=== PATIENT | female | born 1990 | race Two or more races ===

== ENCOUNTER 2021-10-13 02:16 | Inpatient (IN) ==
[2021-10-13] MEDS ORDERED: LACTATED RINGER'S 1,000 ML IV PRN (02:23)
[2021-10-13] MEDS ORDERED: OXYTOCIN 30 UNITS/500 ML BAG IV PRN ×2 (02:23→03:25)
[2021-10-13] MEDS ORDERED: OXYTOCIN 30 UNITS/500ML NSS ONE (02:25)
--- NOTE | 2021-10-13 02:25 | History & Physical Report ---
Date of Service October 13, 2021 Assessment & Plan (1) Supervision of normal intrauterine in multigravida: Plan: Admit to L&D. Labs, EFM/toco. Would like epidural - will get if there is time before delivery. History of Present Illness Chief Complaint: labor Primary Care Provider: MAGDIEL PCP 31yo @ 39 2/, presents with regular ctx. Some small amount of bloody discharge. No leaking fluid. + movement. complicated by GDMA2. Allergies Allergy/AdvReac Type Severity Reaction Status Date / Time gelatin Allergy church Verified 10/10/21 11:00 restristion Home Medications Medication Instructions Recorded Confirmed Type blood-glucose meter (OneTouch #1 ea 05/09/21 10/10/21 Rx Verio Flex Meter) prenat.vits,marline,[id number] 1 tab PO DAILY #30 tabs 06/05/21 10/10/21 Rx acetone (urine) test (Ketone Urine #50 ea 07/28/21 10/10/21 Rx Test strips) blood sugar diagnostic (OneTouch #150 ea 07/28/21 10/10/21 Rx Verio test strips) insulin lispro 100 unit/mL 18 unit (0.18 mL) subcut DAILY #15 07/28/21 10/10/21 Rx subcutaneous pen (Humalog KwikPen mL (U-100) Insulin) lancets 33 gauge (OneTouch Delica #150 ea 07/28/21 10/10/21 Rx Plus Lancet) pen needle, diabetic 32 gauge x #120 ea 07/28/21 10/10/21 Rx 5/32" (BD Ultra-Fine [place] Pen Needle) insulin NPH isoph U-100 human 100 15 unit (0.15 mL) subcut QPM #15 mL 08/22/21 10/10/21 Rx unit/mL (3 mL) subcutaneous pen (Novolin N Flexpen) Patient History Medical History No pertinent past medical history Family History (Updated 04/18/21 @ 15:11 by Nani Ross) Mother Diabetes Social History Smoking Status: Never smoker Hx Alcohol Use: No Hx Substance Use: No marital status: marital status details: Desean (37) [phone] Current Living Situation: Spouse Current Living Situation Comment: lives with spouse and child, no pets. current occupational status: unemployed Feels Safe at Home: Yes Review of Systems All systems reviewed & are unremarkable except as noted in HPI & below Physical Exam Physical Exam: SVE bulging membranes per RN Constitutional: WD/WN, vitals as above Respiratory: normal respiratory effort, lungs clear to auscultation no respiratory distress Cardiovascular: Rate/Rhythm: regular rate and regular rhythm Gastrointestinal (Abdomen): Inspection/Auscultation: abdomen normal to inspection Percussion/Palpation: abdomen soft; abdomen nontender Gravid. No s/s chorio or abruption. Skin: no rashes, warm and dry Psychiatric: A+Ox3, euthymic affect Coding Level of Care Code None Diagnoses Supervision of normal intrauterine in multigravida Z34.80
[2021-10-13] MEDS ORDERED: OXYTOCIN 10 UNITS/ML VIAL ONE (02:54)
[2021-10-13] MEDS ORDERED: LIDOCAINE 1% LOCAL 20 ML VIAL ONE (02:56)
[2021-10-13] MEDS ORDERED: ERYTHROMYCIN OP OINT 1 GM PKT ONE (02:57)
--- NOTE | 2021-10-13 03:21 | Delivery Summary ---
Vaginal Delivery Summary Date of Service October 13, 2021 Vaginal Delivery Summary [facility] Vaginal Delivery Summary: Pre-delivery diagnoses: 31yo @ 39 2/7, spontaneous labor, GDMA2 Post-delivery diagnoses: same Procedure: spontaneous vaginal delivery Surgeon: Za Moore DO Complications: none Findings: Viable male . Apgars: 8/9. Weight pending, please see nursery records. Estimated blood loss: 400ml Description of delivery: The patient arrived in active labor with bulging membranes and extremely painful. She felt urge to push, therefore AROM was performed for clear fluid. She had a small anterior cervical lip that resolved with 2 pushes. This was without anesthesia. She spontaneously vaginally delivered a viable from the cephalic presentation. The head delivered in GABRIEL position. Nuchal cord x 2, not reduced - delivered through. The anterior shoulder delivered, followed spontaneously by the anterior arm, posterior shoulder, followed by the body. The baby was placed on mother's abdomen and a spontaneous cry was heard. Delayed cord clamping was employed, and the cord was doubly clamped and cut. Cord blood was obtained. The placenta was delivered spontaneously intact with a 3-vessel cord. The uterus and vagina were swept of clots and debris. IV pitocin was attempted, however IV not working - therefore 10u IM pitocin was given. The uterine fundus became firm, however the lower uterine segment was somewhat atonic and clots were expressed. 1 dose methergine was given and the bladder was drained with a red rubber catheter. The cervix, vagina, and perineum were inspected and a small hemostatic 1st degree laceration was noted - I offered patient to either let it heal on its own or repair, she elected to let it heal naturally. Repeat fundal exam and sweep of vagina/uterus revealed firm uterus and excellent hemostasis. The mother and baby are recovering in stable and good condition in the room. Sponge and instrument counts were correct x 2. Za Moore DO [facility] Vaginal Delivery Charge Vaginal Delivery Codes: 15951 global code for the antepartum, delivery, and post- Delivery Type Details: [facility]
[2021-10-13] MEDS ORDERED: oxyCODONE/ACETAMINOPHEN 5mg/325mg TAB PO PRN (03:25)
[2021-10-13] MEDS ORDERED: bisacodyL 10 MG SUPP PR PRN (03:25)
[2021-10-13] MEDS ORDERED: DIPHTHERIA/TETANUS/PERTUSSIS 0.5 ML SYR/VIAL IM ONE (03:25)
[2021-10-13] MEDS ORDERED: HYDROCORTISONE ACETATE 25 MG SUPP PR PRN (03:25)
[2021-10-13] MEDS ORDERED: METHYLERGONOVINE MALEATE 0.2 MG/ML AMP IM ONE (03:25)
[2021-10-13] MEDS: IBUPROFEN 600 MG TAB PO PRN ×4 (03:37→23:29)
[2021-10-13] MEDS: ACETAMINOPHEN 325 MG TAB PO PRN ×2 (03:38→14:55)
[2021-10-13] MEDS: BENZOCAINE 20% AER SPR 82.5 GM CAN EXT PRN ×2 (03:47→08:00)
[2021-10-13 04:06] LABS: Hematocrit (blood only) 35.7 % (34.1-44.9); Hemoglobin 11.9 g/dl (12.0-16.0); Mean Corpuscular Hemoglobin 28.3 pg (25.0-34.0); Mean Corpuscular Hgb Conc 33.3 g/dL (32.0-36.0); Mean Platelet Volume 10.2 fL (9.4-12.3); Platelet Count 219 K/uL (130-400); RDW Standard Deviation 42.9 fL (36.4-46.3)
[2021-10-13] MEDS: PRENATAL VITAMIN 1 TAB PO SCH (07:41)
[2021-10-13] MEDS: DOCUSATE SODIUM SYRUP 100 MG/10 ML UDC PO SCH ×2 (07:41→19:30)
[2021-10-13] MEDS ORDERED: DOCUSATE SODIUM 100 MG CAP PO SCH (08:00)
[2021-10-13 12:39] LABS: Hematocrit (blood only) 30.2 % (34.1-44.9); Hemoglobin 10.2 g/dl (12.0-16.0); Mean Corpuscular Hemoglobin 27.9 pg (25.0-34.0); Mean Corpuscular Hgb Conc 33.8 g/dL (32.0-36.0); Mean Corpuscular Volume 82.5 fL (80.0-100.0); Mean Platelet Volume 10.6 fL (9.4-12.3); Platelet Count 219 K/uL (130-400); RDW Coefficient of Variation 14.1 % (11.5-14.5); RDW Standard Deviation 41.6 fL (36.4-46.3); Red Blood Count 3.66 M/uL (3.93-5.22); White Blood Count 12.05 K/ul (4.8-10.8)
--- NOTE | 2021-10-14 05:50 | Obstetrical Progress Note ---
Date of Service <Farheen Palacio DO - Last Filed: 10/14/21 07:32> October 14, 2021 Assessment & Plan <Farheen Palacio DO - Last Filed: 10/14/21 07:32> (1) Insulin controlled gestational diabetes mellitus (GDM) during : (2) Supervision of normal intrauterine in multigravida: Plan s/p Day 1 -Vital signs reviewed and WNL (Tmax at 37.1) -Hemoglobin reviewed, 9.2 (today) -Blood type: B+, GBS-, Rubella immune -Patient is doing well clinically -Encourage ambulation, monitor and control pain with motrin PRN, resume regular diet, monitor lochia -Encourage breast feeding <Liz Desai MD - Last Filed: 10/14/21 08:54> (1) Insulin controlled gestational diabetes mellitus (GDM) during : (2) Supervision of normal intrauterine in multigravida: Subjective <Farheen Palacio DO - Last Filed: 10/14/21 07:32> Janette is a 31 y/o female who is PPD #1 following vaginal delivery at 39 2/7 weeks. Her was complicated by GDMA2. Patient was seen and examined at bedside. She reports feeling well overall this morning. No abdominal cramping but notes some lower back discomfort with 3/10 pain well managed on analgesics. Has had some burning with urination since delivery but states that it is improving. Tolerating meals overnight and able to ambulate some. Has been passing gas and no bowel movements yet. Has some persistent lochia with some improvement this morning. Currently breast feeding. Constitutional: no fever, no chills or no sweats Respiratory: no cough, no dyspnea or no wheezing Cardiovascular: no chest pain, no palpitations or no calf pain Breast: no breast pain Genitourinary (female): no dysuria Neurologic: no headache(s) Physical Exam <Farheen Palacio DO - Last Filed: 10/14/21 07:32> Constitutional WD/WN, vitals as above no acute distress Respiratory no respiratory distress Auscultation: lungs clear to auscultation bilaterally; no rales, no rhonchi and no wheezes Cardiovascular RRR, no murmur, no edema Extremities: no calf tenderness and no edema Negative Erich's sign bilaterally. Gastrointestinal (Abdomen) Inspection/Auscultation: normal bowel sounds Genitourinary Uterine fundus firm, palpable below the umbilicus. Results & Data ([facility]) <Farheen Palacio DO - Last Filed: 10/14/21 07:32> Vital Signs (Past 12 Hours) Vital Signs Temp Pulse Resp BP Pulse Ox O2 Del Method 10/13/21 23:05 36.6 C 98 H 16 100/66 99 Room Air 10/13/21 19:25 37.1 C 97 H 16 109/69 98 Room Air <Liz Desai MD - Last Filed: 10/14/21 08:54> Co-Signing Physician Notes Resident Physician Supervision Note: I interviewed and examined the patient. Discussed with Dr. Palacio and agree with findings and plan as documented in the note. Any exceptions or clarifications are listed here: PP1 s/p , doing well. May want to d/c home today but she will talk to , ok to do so if desires Documented By: Liz Desai MD Resident Activity Tracking <Farheen Palacio DO - Last Filed: 10/14/21 07:32> Resident Involvement: Resident Care Provided Care Provided: OB Delivery
[2021-10-14 06:26] LABS: Hematocrit (blood only) 27.6 % (34.1-44.9); Hemoglobin 9.2 g/dl (12.0-16.0)
[2021-10-14] MEDS: DOCUSATE SODIUM SYRUP 100 MG/10 ML UDC PO SCH ×2 (08:54→21:02)
[2021-10-14] MEDS: IBUPROFEN 600 MG TAB PO PRN ×3 (08:54→21:02)
[2021-10-14] MEDS: PRENATAL VITAMIN 1 TAB PO SCH (08:54)
[2021-10-14] MEDS: FERROUS SULFATE 325 MG TAB PO SCH (13:00)
[2021-10-14] MEDS: ACETAMINOPHEN 325 MG TAB PO PRN (16:07)
[2021-10-14] MEDS ORDERED: bisacodyL 5 MG TABEC PO SCH (20:00)
[2021-10-15] MEDS: ACETAMINOPHEN 325 MG TAB PO PRN (00:29)
--- NOTE | 2021-10-15 07:41 | Obstetrical Progress Note ---
Date of Service <Farheen Palacio DO - Last Filed: 10/15/21 07:41> October 15, 2021 Assessment & Plan <Farheen Palacio DO - Last Filed: 10/15/21 07:41> (1) Insulin controlled gestational diabetes mellitus (GDM) during : (2) Supervision of normal intrauterine in multigravida: Plan s/p Day 2 -Vital signs reviewed and WNL (Tmax at 37.1) -Hemoglobin reviewed, 9.2 (yesterday) -Blood type: B+, GBS-, Rubella immune -Patient is doing well clinically -Encourage ambulation, monitor and control pain with motrin PRN, resume regular diet, monitor lochia -Encourage breast feeding -discussed discharge instructions with patient <Carline Ponce MD - Last Filed: 10/15/21 07:43> (1) Insulin controlled gestational diabetes mellitus (GDM) during : (2) Supervision of normal intrauterine in multigravida: Subjective <DO Martin Gama Last Filed: 10/15/21 07:41> Janette is a 31 y/o female who is PPD #2 following vaginal delivery at 39 2/7 weeks. Her was complicated by GDMA2. Patient was seen and examined at bedside. She reports feeling well overall this morning. No abdominal cramping today, pain well managed on analgesics. Has had some burning with urination since delivery but states that it is improving. Tolerating meals overnight and able to ambulate some. Has been passing gas and no bowel movements yet. Has some persistent lochia with some improvement this morning. Currently breast feeding. Constitutional: no fever, no chills or no sweats Respiratory: no cough, no dyspnea or no wheezing Cardiovascular: no chest pain, no palpitations or no calf pain Breast: no breast pain Genitourinary (female): no dysuria Neurologic: no headache(s) Physical Exam <Farheen Palacio DO - Last Filed: 10/15/21 07:41> Constitutional WD/WN, vitals as above no acute distress Respiratory no respiratory distress Auscultation: lungs clear to auscultation bilaterally; no rales, no rhonchi and no wheezes Cardiovascular RRR, no murmur, no edema Extremities: no calf tenderness and no edema Gastrointestinal (Abdomen) Inspection/Auscultation: normal bowel sounds Genitourinary Uterine fundus firm, palpable below umbilicus Results & Data ([facility]) <Farheen Palacio DO - Last Filed: 10/15/21 07:41> Vital Signs (Past 12 Hours) Vital Signs Temp Pulse Resp BP Pulse Ox O2 Del Method 10/14/21 23:25 36.6 C 98 H 16 100/63 99 Room Air <Carline Ponce MD - Last Filed: 10/15/21 07:43> Co-Signing Physician Notes Resident Physician Supervision Note: I interviewed and examined the patient. Discussed with Dr. Palacio and agree with findings and plan as documented in the note. Any exceptions or clarifications are listed here: [ ] Documented By: Carline Ponce MD, FACOG Resident Activity Tracking <Farheen Palacio DO - Last Filed: 10/15/21 07:41> Resident Involvement: Resident Care Provided Care Provided: OB Delivery
[2021-10-15] MEDS: DOCUSATE SODIUM SYRUP 100 MG/10 ML UDC PO SCH (08:32)
[2021-10-15] MEDS: IBUPROFEN 600 MG TAB PO PRN (08:33)
[2021-10-15] MEDS: PRENATAL VITAMIN 1 TAB PO SCH (08:33)
[2021-10-15] MEDS: FERROUS SULFATE 325 MG TAB PO SCH (08:33)
== END 2021-10-15 14:15 | disposition home or self-care (01) | DRG 807 ==
LOC: OPB 02:16 → 4S1 02:17 → 4E2 05:30